=== PATIENT | female | born 2000 | race Caucasian/White ===

== ENCOUNTER 2019-04-27 09:02 | Emergency (ER) | payer BC, OTHER ==
[2019-04-27] MEDS ORDERED: Albuterol/Ipratropium NEB.SOL* Albuterol 2.5 MG/Ipratropium 0.5 MG 3 ML INH ONE (09:52)
--- NOTE | 2019-04-27 09:56 | ED ---
Throat Pain/Nasal Congestion - HPI Summary HPI Summary: Pt is a 18 y/o F presenting to the ED for a chief complaint of productive cough with yellow/green phlegm and rhinorrhea. Pt also states she had a fever of 102 F on 04/24/19. Pt reports the cough worsens in the morning and at night. Pt states that while at work today, pt felt near syncope and dizziness after walking up some stairs. Pt denies any chills, decreased appetite, erythema of eyes, sore throat, CP, SOB, wheezing, abdominal pain, N/V, dysuria, hematuria, myalgia, bilateral LE edema, or rash. Pt was previously seen at [facility] on and was discharged with a diagnosis of bronchitis and bilateral ear infection. Pt states she has not improved since 04/24/19. Pt is currently taking a 10 day course of amoxicillin and has taken 7 pills thus far. Pt has a PSHx of tonsillectomy and denies a PMHx of asthma. Pt has a FMHx of asthma. Pt admits the use of non-menthol e-cigarettes. Pt works as a home health aide. - History of Current Complaint Chief Complaint: EDUpperRespComplaint Time Seen by Provider: 04/27/19 09:11 Hx Obtained From: Patient Onset/Duration: Sudden Onset, Lasting Days, Still Present Severity: Moderate Associated Signs And Symptoms: Positive: Nasal Discharge. Negative: Wheezing Cough: Productive - Yellow/green phlegm - Allergies/Home Medications Allergies/Adverse Reactions: Allergies Allergy/AdvReac Type Severity Reaction Status Date / Time hydromorphone [From Dilaudid] Allergy Nausea And Verified 04/27/19 09:47 Vomiting Home Medications: Home Medications Amoxicillin PO (*) [Amoxicillin 875 MG (*)] 875 mg PO DAILY 04/27/19 [History Confirmed 04/27/19] Multivitamin/Iron/Folic Acid [Daily Vitamin Formula+Ir] 1 tab PO DAILY 04/27/19 [History Confirmed 04/27/19] PMH/Surg Hx/FS Hx/Imm Hx Previously Healthy: Yes Endocrine/Hematology History: Denies: Hx Anticoagulant Therapy, Hx Blood Disorders, Hx Blood Transfusions, Hx Bone Marrow Disease, Hx Diabetes, Hx Systemic Lupus Erythematosus, Hx Sickle Cell Disease, Hx Thyroid Disease, Hx Anemia, Hx Unexplained Bleeding, Other Endocrine/Hematological Disorders Cardiovascular History: Denies: Hx Hypertension, Hx Pacemaker/ICD Respiratory History: Denies: Hx Asthma, Hx Bronchopulmonary Dysplasia, Hx Chronic Bronchitis, Hx Chronic Obstructive Pulmonary Disease (COPD), Hx Cystic Fibrosis, Hx Lung Cancer , Hx Pleural Effusion, Hx Pneumonia, Hx Pulmonary Edema, Hx Pulmonary Embolism, Hx Seasonal Allergies, Hx Sleep Apnea, Other Respiratory Problems/Disorders History: Denies: Hx Renal Disease Sensory History: Denies: Hx Cataracts, Hx Contacts or Glasses, Hx Eye Injury, Hx Eye Prosthesis, Hx Glaucoma, Hx Macular Degeneration, Hx Vision Problem, Hx Deafness , Hx Hearing Aid, Hx Hearing Problem, Other Sensory Impairments Opthamlomology History: Denies: Hx Cataracts, Hx Contacts or Glasses, Hx Eye Injury, Hx Eye Prosthesis, Hx Glaucoma, Hx Macular Degeneration, Hx Vision Problem, Other Sensory Impairments Neurological History: Denies: Hx Dementia, Hx Developmental Delay, Hx Headaches, Hx Migraine, Hx Seizures, Hx Spinal Cord Injury, Hx Transient Ischemic Attacks (TIA), Other Neuro Impairments/Disorders Psychiatric History: Reports: Hx Oppositional [place] Disorder, Other Psychiatric Issues/Disorders - SI Denies: Hx Anxiety, Hx Attention Deficit Hyperactivity Disorder, Hx Autism, Hx Eating Disorder, Hx Depression, Hx Panic Disorder, Hx Post Traumatic Stress Disorder, Hx Inpatient Treatment, Hx Community Mental Health Tx, Hx Schizophrenia, Hx Bipolar Disorder, Hx Suicide Attempt, Hx Substance Abuse - Surgical History Surgical History: None Surgery Procedure, Year, and Place: None Hx Anesthesia Reactions: No - Immunization History Immunizations Up to Date: Yes Infectious Disease History: No Infectious Disease History: Denies: Hx Hepatitis, Hx Human Immunodeficiency Virus (HIV), Hx Tuberculosis , Traveled Outside the [place] in Last 30 Days - Family History Known Family History: Positive: Respiratory Disease - Asthma - Social History Lives: With Family Alcohol Use: None Hx Substance Use: No Substance Use Type: Reports: None Hx Tobacco Use: Yes Smoking Status (MU): Light Every Day Tobacco Smoker Type: eCigarettes - Non-menthol Review of Systems Positive: Fever - 102 F, in vitals, 98.4 F, Other - Negative decreased appetite. Negative: Chills Negative: Erythema Positive: Nasal Discharge - Positive rhinorrhea. Negative: Sore Throat Positive: Cough - Productive with yellow/green phlegm. Negative: Shortness Of Breath Negative: Abdominal Pain, Vomiting, Nausea Negative: burning Negative: Myalgia, Edema - Bilateral LE Negative: Rash Neurological: Other - Positive dizziness and near syncope All Other Systems Reviewed And Are Negative: Yes Physical Exam - Summary Physical Exam Summary: Constitutional: Well-developed, Well-nourished, Alert. (-) Distressed Skin: Warm, Dry HENT: Normocephalic; Atraumatic Eyes: Conjunctiva normal Neck: Musculoskeletal ROM normal neck. (-) JVD, (-) Stridor, (-) Tracheal deviation Cardio: Rhythm regular, rate normal, Heart sounds normal; Intact distal pulses; The pedal pulses are 2+ and symmetric. Radial pulses are 2+ and symmetric. (-) Murmur Pulmonary/Chest wall: Effort normal. (-) Respiratory distress, (-) Wheezes, (-) Rales Abd: Soft, (-) tenderness, (-) Distension, (-) Guarding, (-) Rebound Musculoskeletal: (-) Edema Lymph: (-) Cervical adenopathy Neuro: Alert, Oriented x3 Psych: Mood and affect Normal Triage Information Reviewed: Yes Vital Signs On Initial Exam: Initial Vitals Temp Pulse Resp BP Pulse Ox 98.4 F 64 18 151/87 97 04/27/19 09:06 04/27/19 09:06 04/27/19 09:06 04/27/19 09:06 04/27/19 09:06 Vital Signs Reviewed: Yes Procedures - Sedation Patient Received Moderate/Deep Sedation with Procedure: No Diagnostics - Vital Signs Vital Signs Temp Pulse Resp BP Pulse Ox 04/27/19 09:06 98.4 F 64 18 151/87 97 - Laboratory Result Diagrams: 04/27/19 10:05 04/27/19 10:05 Lab Statement: Any lab studies that have been ordered have been reviewed, and results considered in the medical decision making process. - Radiology Chest X-ray Radiology Interpretation Completed By: Radiologist Summary of Radiographic Findings: Chest X-ray IMPRESSION: NO ACTIVE CARDIOPULMONARY DISEASE. Reviewed by ED physician. EENT Course/Dx - Course Course Of Treatment: Pt is a 18 y/o F presenting to the ED for a chief complaint of productive cough with yellow/green phlegm and rhinorrhea. Pt also states she had a fever of 102 F on 04/24/19. Pt reports the cough worsens in the morning and at night. Pt states that while at work today, pt felt near syncope and dizziness after walking up some stairs. Pt denies any chills, decreased appetite, erythema of eyes, sore throat, CP, SOB, wheezing, abdominal pain, N/V, dysuria, hematuria, myalgia, bilateral LE edema, or rash. Pt was previously seen at [facility] on 04/24/19 and was discharged with a diagnosis of bronchitis and bilateral ear infection. Pt states she has not improved since . Pt is currently taking a 10 day course of amoxicillin and has taken 7 pills thus far. Pt has a PSHx of tonsillectomy and denies a PMHx of asthma. Pt has a FMHx of asthma. Pt admits the use of non-menthol e-cigarettes. On exam, unremarkable findings. In the ED course, pt was given albuterol 1 neb INH and meclizine 25 mg PO. Laboratory abnormal findings: RBC 4.99. Chest X-ray IMPRESSION: NO ACTIVE CARDIOPULMONARY DISEASE. Pt will be discharged with a diagnosis of benign positional vertigo, left otitis media, URI, and bronchitis. Follow up with PCP in 2-3 days. - Diagnoses Provider Diagnoses: Benign positional vertigo, Left otitis media, URI (upper respiratory infection) , Bronchitis Discharge ED - Sign-Out/Discharge Documenting (check all that apply): Patient Departure - Discharge - Discharge Plan Condition: Stable Disposition: HOME Patient Education Materials: Upper Respiratory Infection (ED) Forms: *Work Release Referrals: Shira Long MD [Primary Care Provider] - Additional Instructions: Follow up with your primary care provider in 2-3 days. RETURN TO THE EMERGENCY DEPARTMENT FOR CHANGING OR WORSENING SYMPTOMS. - Attestation Statements Document Initiated by Scribe: Yes Documenting Scribe: Flory Goff Provider For Whom Scribe is Documenting (Include Credential): Jose Short MD Scribe Attestation: Flory Gonzalez, scribed for Jose Short MD on 04/27/19 at 1208. Status of Scribe Document: Ready
[2019-04-27 10:32] LABS: ALT 13 U/L (7-52); AST 18 U/L (13-39); Albumin 4.9 g/dL (3.2-5.2); Albumin/Globulin Ratio 1.4 (1-3); Alkaline Phosphatase 50 U/L (34-104); Anion Gap 8 mmol/L (2-11); BUN/Creatinine Ratio 14.7 (8-20); Blood Urea Nitrogen 11 mg/dL (6-24); CO2 Carbon Dioxide 27 mmol/L (22-32); Calcium 9.9 mg/dL (8.6-10.3); Chloride 104 mmol/L (101-111); EGFR African American 119.2 (>60); EGFR Non-African American 98.5 (>60); Globulin 3.4 g/dL (2-4); Glucose 81 mg/dL (70-100); Potassium 4.1 mmol/L (3.5-5.0); Sodium 139 mmol/L (135-145); Total Protein 8.3 g/dL (6.4-8.9)
[2019-04-27] MEDS ORDERED: Meclizine TAB* 12.5 MG PO ONE (10:32)
[2019-04-27 10:33] LABS: Hematocrit 45 % (35-47); Hemoglobin 15.6 g/dL (12.0-16.0); Mean Corpuscular HGB Conc 35 g/dL (31-36); Mean Corpuscular Hemoglobin 31 pg (27-31); Mean Corpuscular Volume 90 fL (80-97); Mean Platelet Volume 7.7 fL (7.4-10.4); Platelet Count 277 10^3/uL (150-450); Red Blood Count 4.99 10^6 /uL (3.70-4.87); Red Cell Distribution Width 13 % (10-15); White Blood Count 5.9 10^3/uL (3.5-10.8)
[2019-04-27 10:37] LABS: HCG Pregnancy < 0.60 mIU/mL
[2019-04-27 12:50] VITALS: BP 113/66
== END 2019-04-27 12:45 | disposition home or self-care (01) ==
LOC: ED 09:02
DX: J06.9 Acute upper respiratory infection, unspecified (principal); J40 Bronchitis, not specified as acute or chronic; H66.92 Otitis media, unspecified, left ear; H81.10 Benign paroxysmal vertigo, unspecified ear; F17.290 Nicotine dependence, other tobacco product, uncomplicated; Z88.5 Allergy status to narcotic agent
CPT/HCPCS: 36415; 71046; 80053; 84702; 85027; 99282; A9270-GY